=== PATIENT | female | born 1950 | race Caucasian/White ===

== ENCOUNTER 2016-11-28 14:22 | Emergency (ER) | payer OTHER ==
[~2016-11-28] VITALS: Ht 170.2 cm; Wt 79.4 kg
[2016-11-28 14:26] VITALS: BP 141/52
[2016-11-28] MEDS ORDERED: TOPROL XL25 MG PO (14:52)
[2016-11-28] MEDS ORDERED: ARMOUR THYROID120 M1 PO (14:52)
[2016-11-28] MEDS ORDERED: CRESTOR10 MG PO (14:52)
[2016-11-28] MEDS ORDERED: FUROSEMIDE 20 M20 M1 PO (14:53)
[2016-11-28] MEDS ORDERED: OMEPRAZOLE40 MG PO (14:53)
[2016-11-28] MEDS ORDERED: XANAX 0.25 MG0.25 MG PO (14:53)
[2016-11-28] MEDS ORDERED: UNISOM25 MG PO (14:54)
[2016-11-28] MEDS ORDERED: MELATONIN1 MG PO (14:54)
[2016-11-28] MEDS ORDERED: PROPRANOLOL 1010 MG PO (14:54)
[2016-11-28] MEDS ORDERED: HYDROCODONE-AP1 EAC6 PO (15:04)
== END 2016-11-28 15:20 | disposition home or self-care (01) ==
LOC: ER 14:22
DX: S92.325A Nondisplaced fracture of second metatarsal bone, left foot, initial encounter for closed fracture (principal); S92.335A Nondisplaced fracture of third metatarsal bone, left foot, initial encounter for closed fracture; F10.99 Alcohol use, unspecified with unspecified alcohol-induced disorder; I10 Essential (primary) hypertension; W11.XXXA Fall on and from ladder, initial encounter; Y93.89 Activity, other specified; Y92.89 Other specified places as the place of occurrence of the external cause; Y99.8 Other external cause status